=== PATIENT | female | born 1945 | race Caucasian/White ===

== ENCOUNTER 2018-07-24 11:02 | Emergency (ER) | payer MEDICARE, OTHER, MEDICAID ==
[2018-07-24] MEDS ORDERED: Ondansetron PF 4 MG/2 ML Vial ONE (11:41)
[2018-07-24] MEDS ORDERED: Morphine 4 MG/ML VIAL ONE (11:41)
--- NOTE | 2018-07-24 11:43 | RAD ---
PORTABLE CHEST ONE VIEW: Date: 07-23-18 Time: 11:25 a.m. History: Pre-operative evaluation. FINDINGS: Comparison is made with 01-07-17. The heart size is normal. The aorta is tortuous. No focal areas of consolidation, pneumothoraces, fra nk pulmonary edema or pleural effusions are seen. Mild chronic changes are again noted. IMPRESSION: No radiographic evidence of acute cardiopulmonary process. POS: C
--- NOTE | 2018-07-24 11:44 | RAD ---
LEFT ANKLE THREE VIEWS: History: Fall, left ankle injury. FINDINGS: Comminuted nondisplaced spiral fracture of the distal tibia is partially visualized without definite extension into the tibial plafond. Comminuted oblique fracture of the distal fibular shaft is present with one/half shaft width medial displacement of the major distal fragment. Prominent soft tissue swelling. Osseous structures are demineralized. IMPRESSION: 1. Distal left tibia and fibular fractures as detailed above. 2. Osteoporosis. POS: [facility]
--- NOTE | 2018-07-24 11:46 | RAD ---
LEFT LOWER LEG TWO VIEWS: History: Left leg injury. Fall. FINDINGS: Nondisplaced comminuted predominately spiral fracture of the distal tibia extends from the mid tibia to the metaphysis. No evidence of extension into the ankle mortise. Comminuted predominately oblique fracture of the distal fibular shaft is present with one-half shaft width medial displacement of the major distal fragment. Overlying soft tissue swelling. Osseous struc tures are demineralized. IMPRESSION: 1. Comminuted distal left tibia and fibular fractures. 2. Osteoporosis. POS: [facility]
[2018-07-24] MEDS ORDERED: Morphine 10 MG/ML VIAL ONE (12:21)
[2018-07-24] MEDS ORDERED: Ondansetron ODT 8 MG TAB ONE (12:21)
[2018-07-24 12:48] LABS: #Eosinphils 0.2 thou/uL (0.0-0.7); #Lymphocytes 1.6 thou/uL (1.20-3.40); #Monocytes 1.1 thou/uL (0.11-0.59); #Neutrophils 13.2 thou/uL (1.40-6.50); %Basophils 0.2 % (0.0-1.0); %Eosinophils 1.3 % (0.0-10.0); %Monocytes 6.9 % (0.0-10.0); %Neutrophils 81.6 % (42.0-75.0); Hemoglobin 13.1 g/dL (12.0-16.0); Mean Corpuscular HGB CONC 31.6 g/dL (32.0-36.0); Mean Corpuscular Hemoglobin 30.7 pg (27.0-31.0); Mean Corpuscular Volume 97.2 fL (78.0-98.0); Mean Platelet Volume 6.8 fL (7.4-10.4); Platelet Count 384 thou/uL (130-400); RBC Distribution Width 12.2 % (11.5-14.5); Red Blood Cell (RBC) Count 4.28 mill/uL (4.20-5.40); White Blood Cell (WBC) Count 16.1 thou/uL (4.8-10.8)
[2018-07-24 13:11] LABS: ALT (SGPT) 17 U/L (8-55); AST (SGOT) 19 U/L (5-34); Albumin 3.9 g/dL (3.4-4.8); Alkaline Phosphatase 139 U/L (40-150); Anion Gap 15 mmol/L (10-20); BUN (Urea Nitrogen) 16 mg/dL (9.8-20.1); Bilirubin, Total 0.2 mg/dL (0.2-1.2); Calc. Creatinine Clearance 0 mL/min (70-130); Calcium 9.9 mg/dL (7.8-10.44); Carbon Dioxide 26 mmol/L (23-31); Chloride 100 mmol/L (98-107); Estimated GFR-MDRD 51; Globulin 3.6 g/dL (2.4-3.5); Glucose 141 mg/dL (83-110); Protein, Total 7.5 g/dL (6.0-8.3); Sodium 137 mmol/L (136-145)
--- NOTE | 2018-07-24 13:45 | CON ---
DATE OF CONSULTATION: 07/24/2018 CONSULTING PHYSICIAN: Magdy Whelan MD CHIEF COMPLAINT: Left ankle pain and fracture. HISTORY OF PRESENT ILLNESS: The patient presented to [facility] after the patient stood to transfer to a bedside commode and felt her leg crack. She reports that her leg gave out on her. She reported left ankle pain and swelling. Denied any head injury. Her is currently at bedside. The patient is mainly bedbound. She has a longstanding history of dementia as well as COPD and has been bedbound for the last 7 to 8 years. He states that she pivot transfers to a bedside commode with assistance of which they have 3 to 4 people in her home at all times to help her. He reports a longstanding history of fragility fractures. They deny any other complaints currently in the emergency department. PAST MEDICAL HISTORY: Significant for hypothyroidism, hyperlipidemia, hypertension, CVA, pulmonary disease, asthma, COPD, multiple sclerosis, type 2 diabetes, dementia. PAST SURGICAL HISTORY: Includes hysterectomy, left hip surgery, hemicolectomy in March 2014. PAST PSYCHIATRIC HISTORY: Includes anxiety and depression. SOCIAL HISTORY: The patient was a smoker many years ago. She denies any alcohol or drug use. She lives at home with her , mainly bedbound, and has home health that comes daily to her house. ALLERGIES: INCLUDE AMPICILLIN AND CODEINE. FAMILY HISTORY: Reviewed and noncontributory. PHYSICAL EXAMINATION: VITAL SIGNS: Blood pressure 123/88, pulse of 82, respiratory rate of 18, O2 saturation 95% on 2 L nasal cannula, temperature 98.7. GENERAL: The patient is awake and alert. She is in no apparent distress. She is pleasant and cooperative with exam findings today. Nurses are currently at bedside attempting to get an IV on her at the time of my exam. HEAD: Normocephalic, atraumatic. NECK: Supple. Trachea midline. Breathing is nonlabored. EXTREMITIES: The left lower extremity was evaluated. It is noted to be externally rotated. No significant soft tissue swelling or ecchymosis visualized. Skin is free of lesions and rashes. The patient is able to move all toes. She reports sensation intact distally. Capillary refill, 3 seconds. The patient is tender to palpation along the tibia and the distal fibula region. Range of motion not assessed in the ankle. The remainder of the extremities were also evaluated and no other injuries were noted. DIAGNOSTIC DATA: Radiographic findings including views of the left tib-fib, which were taken today in the emergency department reveal evidence of what appears to be a nondisplaced spiral fracture of the tibia. There is also a displaced distal fibula fracture present. These x-ray findings were reviewed and discussed with Dr. Whelan. ASSESSMENT: Left tibia and fibula fractures, nondisplaced in an elderly female, who is bedbound. PLAN: At this time, the patient is being placed in a posterior short-leg cast. I have gone over plan of care with her today including nonweightbearing status for at least the next month. He says that they will be compliant with this as this is not an issue because she does not ambulate. We would like to see them in the clinic for 2 to 3 weeks for re-evaluation, mainly to check for any wound or skin issues. It may have been caused from pressure sores being that she is a bedbound patient. Plan of care reviewed with the patient and her family today. They verbalized understanding. We will plan to see them in the office in 2 to 3 weeks. Job ID: [id number]
== END 2018-07-24 14:24 | disposition home or self-care (01) ==
LOC: ERS 11:02
DX: S82.302A Unspecified fracture of lower end of left tibia, initial encounter for closed fracture (principal); S82.832A Other fracture of upper and lower end of left fibula, initial encounter for closed fracture; E03.9 Hypothyroidism, unspecified; E78.5 Hyperlipidemia, unspecified; I10 Essential (primary) hypertension; Z86.73 Personal history of transient ischemic attack (TIA), and cerebral infarction without residual deficits; J44.9 Chronic obstructive pulmonary disease, unspecified; E11.9 Type 2 diabetes mellitus without complications; F03.90 Unspecified dementia, unspecified severity, without behavioral disturbance, psychotic disturbance, mood disturbance, and anxiety; F41.9 Anxiety disorder, unspecified; F32.9 Major depressive disorder, single episode, unspecified; Z79.899 Other long term (current) drug therapy; W19.XXXA Unspecified fall, initial encounter
CPT/HCPCS: 27750; 27786; 36415; 71045; 80053; 85025; 93005; 96372; J2270; J2405; J7620

== ENCOUNTER 2021-02-19 17:00 | Inpatient (IN) | payer MEDICARE, MEDICAID ==
[2021-02-19] MEDS ORDERED: Ondansetron PF 4 MG/2 ML Vial IVP PRN (17:45)
[2021-02-19] MEDS ORDERED: Ondansetron ODT 4 MG TAB SL PRN (17:45)
[2021-02-19] MEDS ORDERED: Acetaminophen 325 MG TAB PO PRN (17:45)
[2021-02-19 17:47] VITALS: BMI 25.3
[2021-02-19] MEDS ORDERED: Clindamycin/D5W 600 MG in Premix Bag 1 BAG IVPB SCH (20:00)
[2021-02-20] MEDS ORDERED: FLU VACC QS2021-22(65YR UP)/PF 240 MCG/0.7 ML SYRINGE IM ONE (09:00)
[2021-02-20] MEDS ORDERED: methylPREDNISolone Sod Succ 40 MG VIAL IVP SCH (12:40)
[2021-02-20] MEDS ORDERED: Bacteriostatic Water 30 ML VIAL FS PRN (12:45)
[2021-02-20] MEDS: methylPREDNISolone Sod Succ 40 MG VIAL IVP SCH (14:02)
[2021-02-20] MEDS: cefTRIAXone\\ROCEPHIN 1 GM in Sodium Chloride 0.9% 100 ML IVPB SCH (14:03)
[2021-02-21] MEDS: methylPREDNISolone Sod Succ 40 MG VIAL IVP SCH ×2 (02:00→14:20)
[2021-02-21 05:26] LABS: #Lymphocytes 0.4 thou/uL (1.20-3.40); #Monocytes 0.1 thou/uL (0.11-0.59); #Neutrophils 6.3 thou/uL (1.40-6.50); %Basophils 0.4 % (0.0-1.0); %Eosinophils 0.1 % (0.0-10.0); %Lymphocytes 5.9 % (21.0-51.0); %Monocytes 1.6 % (0.0-10.0); %Neutrophils 92.1 % (42.0-75.0); Hemoglobin 11.8 g/dL (12.0-16.0); Mean Corpuscular HGB CONC 32.7 g/dL (32.0-36.0); Mean Corpuscular Hemoglobin 29.1 pg (27.0-31.0); Mean Corpuscular Volume 88.9 fL (78.0-98.0); Mean Platelet Volume 6.7 fL (7.4-10.4); Platelet Count 385 thou/uL (130-400); Red Blood Cell (RBC) Count 4.07 mill/uL (4.20-5.40); White Blood Cell (WBC) Count 6.8 thou/uL (4.8-10.8)
[2021-02-21 05:54] LABS: Anion Gap 12 mmol/L (10-20); BUN (Urea Nitrogen) 11 mg/dL (9.8-20.1); Calc. Creatinine Clearance 68 mL/min (70-130); Calcium 9.7 mg/dL (7.8-10.44); Carbon Dioxide 28 mmol/L (23-31); Chloride 98 mmol/L (98-107); Glucose 139 mg/dL (83-110); Sodium 134 mmol/L (136-145)
[2021-02-21] MEDS: Enoxaparin Sodium 40 MG/0.4 ML SYRINGE SC SCH (09:36)
[2021-02-21] MEDS: cefTRIAXone\\ROCEPHIN 1 GM in Sodium Chloride 0.9% 100 ML IVPB SCH (14:20)
[2021-02-22] MEDS: methylPREDNISolone Sod Succ 40 MG VIAL IVP SCH (02:30)
[2021-02-22 08:09] VITALS: BP 161/74; TEMP 97.2
[2021-02-22] MEDS: Enoxaparin Sodium 40 MG/0.4 ML SYRINGE SC SCH (08:56)
[2021-02-22] MEDS: cefTRIAXone\\ROCEPHIN 1 GM in Sodium Chloride 0.9% 100 ML IVPB SCH (10:04)
[2021-02-22] MEDS ORDERED: COVID-19 VACC,AD26(JANSSEN)/PF 0.5 ML SYRINGE IM ONE (12:34)
== END 2021-02-22 14:41 | disposition home or self-care (01) | DRG 189 ==
LOC: ONC 17:00
PROVIDERS: ADMIT Internal Medicine; ATTEND Internal Medicine
DX: J96.21 Acute and chronic respiratory failure with hypoxia (principal); J44.1 Chronic obstructive pulmonary disease with (acute) exacerbation; N39.0 Urinary tract infection, site not specified; I10 Essential (primary) hypertension; E78.5 Hyperlipidemia, unspecified; Z20.822 Contact with and (suspected) exposure to COVID-19; E11.9 Type 2 diabetes mellitus without complications; I95.9 Hypotension, unspecified; F03.90 Unspecified dementia, unspecified severity, without behavioral disturbance, psychotic disturbance, mood disturbance, and anxiety; K59.00 Constipation, unspecified; Z96.649 Presence of unspecified artificial hip joint; Z23 Encounter for immunization; Z86.73 Personal history of transient ischemic attack (TIA), and cerebral infarction without residual deficits; Z99.81 Dependence on supplemental oxygen; Z88.1 Allergy status to other antibiotic agents; Z88.5 Allergy status to narcotic agent; Z88.8 Allergy status to other drugs, medicaments and biological substances; Z79.51 Long term (current) use of inhaled steroids; Z79.890 Hormone replacement therapy; Z79.899 Other long term (current) drug therapy; Z90.49 Acquired absence of other specified parts of digestive tract; Z79.82 Long term (current) use of aspirin
CPT/HCPCS: 36415; 80048; 85025; 93306; 94640; J0696; J1650; J2920; J3490; J7620

== ENCOUNTER 2022-03-02 20:19 | Inpatient (IN) | payer MEDICARE, MEDICAID ==
[~2022-03-02 20:19] MED LIST: Iopamidol-370 76% 500 ML 1 ML ONE
[2022-03-02] MEDS ORDERED: Lidocaine Viscous Sol 2% 15 ml UD Cup ONE (21:16)
[2022-03-02] MEDS ORDERED: Mag-Al 1200 mg/1200 mg/30 ML UDCUP ONE (21:16)
[2022-03-02 22:00] LABS: #Eosinphils 0.1 thou/uL (0.0-0.7); #Lymphocytes 0.7 thou/uL (1.20-3.40); #Monocytes 0.8 thou/uL (0.11-0.59); #Neutrophils 11.5 thou/uL (1.40-6.50); %Basophils 0.1 % (0.0-1.0); %Lymphocytes 5.3 % (21.0-51.0); %Monocytes 5.8 % (0.0-10.0); %Neutrophils 87.8 % (42.0-75.0); Hemoglobin 12.9 g/dL (12.0-16.0); Mean Corpuscular HGB CONC 30.5 g/dL (32.0-36.0); Mean Corpuscular Hemoglobin 27.6 pg (27.0-31.0); Mean Corpuscular Volume 90.6 fL (78.0-98.0); Mean Platelet Volume 6.8 fL (7.4-10.4); Platelet Count 539 thou/uL (130-400); RBC Distribution Width 13.6 % (11.5-14.5); Red Blood Cell (RBC) Count 4.68 mill/uL (4.20-5.40); White Blood Cell (WBC) Count 13.1 thou/uL (4.8-10.8)
[2022-03-02 22:23] LABS: ALT (SGPT) 24 U/L (8-55); AST (SGOT) 24 U/L (5-34); Albumin 3.9 g/dL (3.4-4.8); Alkaline Phosphatase 147 U/L (40-110); Anion Gap 21 mmol/L (10-20); BUN (Urea Nitrogen) 12 mg/dL (9.8-20.1); Bilirubin, Total 0.2 mg/dL (0.2-1.2); Calc. Creatinine Clearance 0 mL/min (70-130); Calcium 9.5 mg/dL (7.8-10.44); Carbon Dioxide 19 mmol/L (23-31); Chloride 97 mmol/L (98-107); Estimated GFR 68; Globulin 4.1 g/dL (2.4-3.5); Glucose 145 mg/dL (83-110); Potassium 3.8 mmol/L (3.5-5.1); Sodium 133 mmol/L (136-145)
[2022-03-02] MEDS ORDERED: Ketorolac Tromethamine 30 MG/ML VIAL ONE (23:44)
[2022-03-03 02:37] LABS: Bacteria/HPF 3+ HPF (None Seen); Bilirubin Negative (Negative); Blood, Urine 3+ (Negative); Clarity Extra Turbid (Clear); Glucose, Urine (Dipstick) Normal (Negative); Ketone, Urine 10 mg/dL (Negative); Leukocyte 75 Leu/uL (Negative); Nitrite Negative (Negative); Protein, Urine (Dipstick) 30 mg/dL (Neg-Trace); RBC/HPF Greater than 50 HPF (0-3); Transitional Epithelial 0-3 HPF (None Seen); WBC/HPF Greater than 50 HPF (0-3)
[2022-03-03 02:38] LABS: Specific Gravity, Urine Greater than 1.060 (1.002-1.036)
[2022-03-03] MEDS ORDERED: Vancomycin 1 GM/200 ML BAG ONE (03:22)
[2022-03-03] MEDS ORDERED: Acetaminophen 325 MG TAB PO PRN (04:00)
[2022-03-03] MEDS ORDERED: Ondansetron ODT 4 MG TAB SL PRN (04:00)
[2022-03-03] MEDS ORDERED: Ondansetron PF 4 MG/2 ML Vial IVP PRN (04:00)
[2022-03-03] MEDS: Sodium Chloride 0.9% 1,000 ML IV SCH ×2 (04:58→14:00)
[2022-03-03 05:05] VITALS: BMI 28.3
[2022-03-03] MEDS ORDERED: HumaLOG 300 UNITS/3 ML VIAL SC PRN ×2 (06:11)
[2022-03-03] MEDS ORDERED: Dextrose 5% in Water 1,000 ML IV PRN (06:11)
[2022-03-03] MEDS ORDERED: Dextrose 50% Abboject 50 ML SYRINGE SLOW IVP PRN (06:11)
[2022-03-03] MEDS: methylPREDNISolone Sod Succ 40 MG VIAL IVP SCH (06:43)
[2022-03-03] MEDS: cefTRIAXone\\ROCEPHIN 1 GM in Sodium Chloride 0.9% 100 ML IVPB SCH (06:43)
[2022-03-03 07:28] LABS: #Basophils 0.1 thou/uL (0.0-0.2); #Eosinphils 0.1 thou/uL (0.0-0.7); #Lymphocytes 1.3 thou/uL (1.20-3.40); #Neutrophils 6.4 thou/uL (1.40-6.50); %Basophils 0.7 % (0.0-1.0); %Eosinophils 1.4 % (0.0-10.0); %Monocytes 11.2 % (0.0-10.0); %Neutrophils 71.8 % (42.0-75.0); Hemoglobin 11.6 g/dL (12.0-16.0); Mean Corpuscular HGB CONC 32.1 g/dL (32.0-36.0); Mean Corpuscular Hemoglobin 28.8 pg (27.0-31.0); Mean Corpuscular Volume 89.8 fL (78.0-98.0); Mean Platelet Volume 7.4 fL (7.4-10.4); Platelet Count 460 thou/uL (130-400); RBC Distribution Width 13.6 % (11.5-14.5); Red Blood Cell (RBC) Count 4.02 mill/uL (4.20-5.40)
[2022-03-03 07:49] LABS: Anion Gap 13 mmol/L (10-20); BUN (Urea Nitrogen) 12 mg/dL (9.8-20.1); Calc. Creatinine Clearance 64 mL/min (70-130); Calcium 8.8 mg/dL (7.8-10.44); Carbon Dioxide 25 mmol/L (23-31); Chloride 100 mmol/L (98-107); Estimated GFR 75; Glucose 118 mg/dL (83-110); Potassium 3.7 mmol/L (3.5-5.1); Sodium 134 mmol/L (136-145)
[2022-03-03] MEDS: Enoxaparin Sodium 40 MG/0.4 ML SYRINGE SC SCH (09:03)
[2022-03-03] MEDS: Azithromycin 500 MG in Sodium Chloride 0.9% 250 ML 250 ML IVPB SCH (09:03)
[2022-03-04] MEDS: cefTRIAXone\\ROCEPHIN 1 GM in Sodium Chloride 0.9% 100 ML IVPB SCH (06:01)
[2022-03-04] MEDS: methylPREDNISolone Sod Succ 40 MG VIAL IVP SCH (06:01)
[2022-03-04 06:30] LABS: #Basophils 0.1 thou/uL (0.0-0.2); #Eosinphils 0.4 thou/uL (0.0-0.7); #Monocytes 0.7 thou/uL (0.11-0.59); #Neutrophils 4.5 thou/uL (1.40-6.50); %Eosinophils 5.9 % (0.0-10.0); %Lymphocytes 15.4 % (21.0-51.0); %Monocytes 10.2 % (0.0-10.0); %Neutrophils 67.5 % (42.0-75.0); Hemoglobin 12.1 g/dL (12.0-16.0); Mean Corpuscular HGB CONC 30.5 g/dL (32.0-36.0); Mean Corpuscular Hemoglobin 27.5 pg (27.0-31.0); Mean Corpuscular Volume 90.2 fL (78.0-98.0); Mean Platelet Volume 7.1 fL (7.4-10.4); Platelet Count 502 thou/uL (130-400); RBC Distribution Width 13.8 % (11.5-14.5); Red Blood Cell (RBC) Count 4.41 mill/uL (4.20-5.40); White Blood Cell (WBC) Count 6.7 thou/uL (4.8-10.8)
[2022-03-04 06:39] LABS: Anion Gap 15 mmol/L (10-20); BUN (Urea Nitrogen) 8 mg/dL (9.8-20.1); Calc. Creatinine Clearance 74 mL/min (70-130); Carbon Dioxide 19 mmol/L (23-31); Chloride 104 mmol/L (98-107); Estimated GFR 90; Glucose 88 mg/dL (83-110); Sodium 134 mmol/L (136-145)
[2022-03-04] MEDS: Azithromycin 500 MG in Sodium Chloride 0.9% 250 ML 250 ML IVPB SCH (09:26)
[2022-03-04] MEDS: Enoxaparin Sodium 40 MG/0.4 ML SYRINGE SC SCH (09:26)
[2022-03-04] MEDS ORDERED: Acetaminophen 325 MG TAB PO PRN (20:45)
[2022-03-05] MEDS: methylPREDNISolone Sod Succ 40 MG VIAL IVP SCH (05:47)
[2022-03-05] MEDS: cefTRIAXone\\ROCEPHIN 1 GM in Sodium Chloride 0.9% 100 ML IVPB SCH (05:47)
[2022-03-05 06:57] LABS: #Basophils 0.1 thou/uL (0.0-0.2); #Eosinphils 0.6 thou/uL (0.0-0.7); #Lymphocytes 1.1 thou/uL (1.20-3.40); #Neutrophils 6.1 thou/uL (1.40-6.50); %Basophils 0.7 % (0.0-1.0); %Eosinophils 7.2 % (0.0-10.0); %Monocytes 10.8 % (0.0-10.0); %Neutrophils 69.3 % (42.0-75.0); Hemoglobin 11.8 g/dL (12.0-16.0); Mean Corpuscular HGB CONC 30.4 g/dL (32.0-36.0); Mean Corpuscular Hemoglobin 27.4 pg (27.0-31.0); Mean Corpuscular Volume 90.3 fL (78.0-98.0); Mean Platelet Volume 6.9 fL (7.4-10.4); Platelet Count 507 thou/uL (130-400); RBC Distribution Width 13.8 % (11.5-14.5); Red Blood Cell (RBC) Count 4.29 mill/uL (4.20-5.40); White Blood Cell (WBC) Count 8.8 thou/uL (4.8-10.8)
[2022-03-05 07:01] LABS: Anion Gap 12 mmol/L (10-20); BUN (Urea Nitrogen) 9 mg/dL (9.8-20.1); Calc. Creatinine Clearance 66 mL/min (70-130); Carbon Dioxide 25 mmol/L (23-31); Chloride 101 mmol/L (98-107); Estimated GFR 78; Glucose 89 mg/dL (83-110); Potassium 3.6 mmol/L (3.5-5.1); Sodium 134 mmol/L (136-145)
[2022-03-05] MEDS: Enoxaparin Sodium 40 MG/0.4 ML SYRINGE SC SCH (08:17)
[2022-03-05] MEDS: Azithromycin 500 MG in Sodium Chloride 0.9% 250 ML 250 ML IVPB SCH (08:32)
[2022-03-05] MEDS ORDERED: Promethazine HCl 25 MG in Sodium Chloride 0.9% 50 ML IVPB PRN (09:22)
[2022-03-05 23:15] VITALS: TEMP 97.9
[2022-03-06] MEDS: cefTRIAXone\\ROCEPHIN 1 GM in Sodium Chloride 0.9% 100 ML IVPB SCH (05:40)
[2022-03-06] MEDS: methylPREDNISolone Sod Succ 40 MG VIAL IVP SCH (05:40)
[2022-03-06 07:09] LABS: #Eosinphils 1.3 thou/uL (0.0-0.7); #Lymphocytes 1.6 thou/uL (1.20-3.40); #Monocytes 0.9 thou/uL (0.11-0.59); #Neutrophils 4.4 thou/uL (1.40-6.50); %Basophils 0.3 % (0.0-1.0); %Eosinophils 15.4 % (0.0-10.0); %Monocytes 10.7 % (0.0-10.0); %Neutrophils 53.6 % (42.0-75.0); Hemoglobin 11.1 g/dL (12.0-16.0); Mean Corpuscular HGB CONC 30.6 g/dL (32.0-36.0); Mean Corpuscular Hemoglobin 27.8 pg (27.0-31.0); Mean Platelet Volume 6.8 fL (7.4-10.4); Platelet Count 506 thou/uL (130-400); RBC Distribution Width 13.8 % (11.5-14.5); Red Blood Cell (RBC) Count 3.99 mill/uL (4.20-5.40); White Blood Cell (WBC) Count 8.2 thou/uL (4.8-10.8)
[2022-03-06 07:24] LABS: Anion Gap 11 mmol/L (10-20); BUN (Urea Nitrogen) 10 mg/dL (9.8-20.1); Calc. Creatinine Clearance 60 mL/min (70-130); Calcium 8.5 mg/dL (7.8-10.44); Carbon Dioxide 26 mmol/L (23-31); Chloride 103 mmol/L (98-107); Estimated GFR 69; Glucose 97 mg/dL (83-110); Potassium 3.4 mmol/L (3.5-5.1); Sodium 137 mmol/L (136-145)
[2022-03-06] MEDS ORDERED: FLU VACC QS2022-23(65YR UP)/PF 240 MCG/0.7 ML SYRINGE IM ONE (09:00)
[2022-03-06] MEDS ORDERED: Potassium Chloride 20 MEQ TAB PO SCH (10:30)
[2022-03-06] MEDS: Azithromycin 500 MG in Sodium Chloride 0.9% 250 ML 250 ML IVPB SCH ×2 (10:44→11:11)
[2022-03-06] MEDS: Enoxaparin Sodium 40 MG/0.4 ML SYRINGE SC SCH (10:45)
[2022-03-06] MEDS ORDERED: Doxycycline 100 MG CAP PO SCH (11:00)
[2022-03-06] MEDS ORDERED: Cefdinir 300 MG CAP PO SCH (11:00)
[2022-03-06 12:05] VITALS: BP 156/87
== END 2022-03-06 14:07 | disposition home or self-care (01) | DRG 193 ==
LOC: ERS 20:19 → T4-A 03-03 03:17
PROVIDERS: ADMIT Student in an Organized Health Care Education/Training Program; ATTEND Internal Medicine
DX: J18.9 Pneumonia, unspecified organism (principal); G93.41 Metabolic encephalopathy; J45.901 Unspecified asthma with (acute) exacerbation; E87.1 Hypo-osmolality and hyponatremia; E11.9 Type 2 diabetes mellitus without complications; E78.5 Hyperlipidemia, unspecified; I10 Essential (primary) hypertension; F03.90 Unspecified dementia, unspecified severity, without behavioral disturbance, psychotic disturbance, mood disturbance, and anxiety; E87.6 Hypokalemia; R53.81 Other malaise; F41.9 Anxiety disorder, unspecified; F32.A Depression, unspecified; E03.9 Hypothyroidism, unspecified; G35 Multiple sclerosis; Z88.1 Allergy status to other antibiotic agents; Z88.5 Allergy status to narcotic agent; Z88.8 Allergy status to other drugs, medicaments and biological substances; Z79.51 Long term (current) use of inhaled steroids; Z79.890 Hormone replacement therapy; Z79.899 Other long term (current) drug therapy; Z79.82 Long term (current) use of aspirin; Z90.49 Acquired absence of other specified parts of digestive tract; Z90.710 Acquired absence of both cervix and uterus; Z98.890 Other specified postprocedural states; Z86.73 Personal history of transient ischemic attack (TIA), and cerebral infarction without residual deficits; Z20.822 Contact with and (suspected) exposure to COVID-19
CPT/HCPCS: 36415; 36416; 71045; 71275; 80048; 80053; 81003; 81015; 83880; 84443; 84484; 85025; 87086; 93005; 94640; 96374; 96375; J0456; J0696; J1650; J1885; J2550; J2920; J3370; J3490; J7050; J7620; Q9967; U0003; U0005